=== PATIENT | female | born 1965 | race Hispanic/Latino ===

== ENCOUNTER → 2017-05-27 | Outpatient (CLI) | payer BC ==
--- NOTE | 2017-05-27 13:59 | Diagnostic Imaging Report ---
PROCEDURE:TRANSVAGINAL ULTRASOUND COMPARISON:None. INDICATIONS:Left Pelvic Pain TECHNIQUE: Grayscale transverse and sagittal transabdominal and transvaginal images were obtained of the pelvis. Transvaginal imaging was medically necessary to better evaluate the endometrium. Exam limited due to patient's body habitus.. FINDINGS: UTERUS: 11.0 x 5.3 x 6.4 cm no focal lesions. Normal echogenicity. Multiple nabothian cysts are noted in the cervix. ENDOMETRIUM: 1.0 cm. Normal. Homogeneous echotexture, without focal thickening. RIGHT OVARY: 3.6 x 2.1 x 2.6 cm.. No focal lesions. LEFT OVARY: 4.1 x 2.7 x 3.5 cm. 2.4 x 2.2 x 2.3 cm cystic, anechoic lesion in the left ovary, without septations or nodularity, likely representing a simple follicular cyst or dominant follicle. There is no free fluid within the pelvis. No adnexal masses. CONCLUSION: 1. Essentially unremarkable pelvic ultrasound. 2. 2.4 cm left ovarian simple follicular cyst versus dominant follicle. No further followup is indicated. Karri Jj M.D. Dictated by: Karri Jj M.D. on 05/27/2017 at 14:07 Electronically approved by: Karri Jj M.D. on 05/27/2017 at 14:07
--- NOTE | 2017-05-27 13:59 | Diagnostic Imaging Report ---
PROCEDURE:US PELVIS COMPLETE NON OB COMPARISON:None. INDICATIONS:Left Pelvic Pain CONCLUSION: Please refer to transvaginal ultrasound performed at the same date and time for full dictated report. Karri Jj M.D. Dictated by: Karri Jj M.D. on 05/27/2017 at 14:07 Electronically approved by: Karri Jj M.D. on 05/27/2017 at 14:07
--- NOTE | 2017-05-27 16:06 | Diagnostic Imaging Report ---
#[id number] - MGSCRBIL #BILATERAL DIGITAL SCREENING MAMMOGRAM WITH CAD: 05/27/2017 CLINICAL: Routine screening. Comparison is made to exams dated: 01/14/2015 mammogram and 10/15/2013 mammogram - [facility]. Current study contains 4 films. There are scattered fibroglandular elements in both breasts. Current study was also evaluated with a Computer Aided Detection (CAD) system. There are benign lymph nodes in both breasts. There also are benign calcifications in the right breast. No significant masses, calcifications, or other findings are seen in either breast. There has been no significant interval change. IMPRESSION: BENIGN There is no mammographic evidence of malignancy. A 1 year screening mammogram is recommended. The patient will be notified by letter of the results. Soham ford/ulisses:05/27/2017 11:03:46 Body Straightener: Angelia WEN)(Bill), [facility] letter sent: Compared to Prior B9 Mammogram BI-RADS: 2 Benign
== END ==
LOC: US 08:25
PROVIDERS: ATTEND Obstetrics & Gynecology
DX: Z12.31 Encounter for screening mammogram for malignant neoplasm of breast (principal); R10.2 Pelvic and perineal pain
CPT/HCPCS: 76830; 76856; G0202

== ENCOUNTER → 2019-06-29 | Outpatient (CLI) | payer BC ==
[~2019-06-29] MED LIST: DIATRIZOATE MEGL/DIATRIZOA SOD 30 ML BTL PO ONE; IOPAMIDOL 370 MG/ML 200 ML INFUS..BTL INJ ONE; SODIUM CHLORIDE 0.9% 50ML 50 ML ONE
--- NOTE | 2019-06-29 09:39 | Diagnostic Imaging Report ---
CT of the abdomen and pelvis, with contrast, 06/29/2019. History: Left-sided abdominal pain. Comparison: None available. Technique: Multidetector CT scanning of the abdomen and pelvis was performed from the level of the lung bases to the inferior pubic rami after intravenous and oral administration of contrast. Coronal and sagittal multiplanar reformations were obtained. RADIATION DOSE: Total DLP: 691 mGy*cm Dose modulation, iterative reconstruction, and/or weight based adjustment of the mA/kV was utilized to reduce the radiation dose to as low as reasonably achievable. Discussion: LUNG BASES: No visualized abnormalities. ABDOMEN: There is diffusely low-density of the liver. The biliary tree, spleen, pancreas, adrenal glands, and kidneys are normal. The hepatic vein, portal vein, and splenic vein are patent. The abdominal aorta is within normal limits for size. The stomach and small bowel are unremarkable. The appendix is visualized and is normal. Multiple colonic diverticuli are present without evidence of adjacent inflammation There is no evidence of adenopathy or free fluid. A fat-containing left periumbilical ventral hernia is present with a 2 cm neck. PELVIS: The bladder, uterus, and adnexa are normal in appearance. Bilateral tubal ligation clips are present. There is no evidence of free fluid or adenopathy. BONES AND SOFT TISSUES: No acute abnormality. IMPRESSION: 1. Diffuse fatty infiltration of the liver. 2. Colonic diverticulosis without evidence of diverticulitis. 3. Fat-containing left periumbilical hernia. 4. Status post cholecystectomy. Signed by: Joaquin Chávez on 06/29/2019 9:37 AM
== END ==
LOC: CT 07:40
PROVIDERS: ATTEND Family Medicine
DX: R10.9 Unspecified abdominal pain (principal); K76.0 Fatty (change of) liver, not elsewhere classified; K57.90 Diverticulosis of intestine, part unspecified, without perforation or abscess without bleeding; K42.9 Umbilical hernia without obstruction or gangrene
CPT/HCPCS: 74177; Q9967

== ENCOUNTER → 2025-02-16 | Day surgery (SDC) | payer BC ==
[~2025-02-16] MED LIST changes: +ATORVASTATIN CA10 MG PO; -DIATRIZOATE MEGL/DIATRIZOA SOD 30 ML BTL PO ONE; +FENTANYL CITRATE/PF 100MCG/2 ML INJ ONE; +HYOSCYAMINE SULFATE 0.5 MG/ML INJ ONE; -IOPAMIDOL 370 MG/ML 200 ML INFUS..BTL INJ ONE; +KETAMINE 50MG/5ML SYR ONE; +LIDOCAINE HCL 2% LOCAL INJ 5 ML SDV VIAL INJ ONE; +METFORMIN HCL500 MG PO; +ONDANSETRON HCL INJ 2MG/ML 2ML 2 MG/ML VIAL ONE; +PROPOFOL IV EMULSION 50 ML IV ONE; -SODIUM CHLORIDE 0.9% 50ML 50 ML ONE
[2025-02-16 13:32] VITALS: BP 138/91; PULSE 79; RESP 18; TEMP 98.2; O2SAT 99
== END | disposition home or self-care (01) ==
LOC: OR 09:16
PROVIDERS: ATTEND Internal Medicine Gastroenterology
DX: Z12.11 Encounter for screening for malignant neoplasm of colon (principal); K57.30 Diverticulosis of large intestine without perforation or abscess without bleeding; K64.8 Other hemorrhoids; E11.9 Type 2 diabetes mellitus without complications; K76.0 Fatty (change of) liver, not elsewhere classified; I10 Essential (primary) hypertension; E66.812 Obesity, class 2; Z68.36 Body mass index [BMI] 36.0-36.9, adult; Z79.84 Long term (current) use of oral hypoglycemic drugs; Z79.899 Other long term (current) drug therapy; Z01.810 Encounter for preprocedural cardiovascular examination
CPT/HCPCS: 36415; 45380; 45385; 82948; 93005; J1980; J2003; J2405; J2704; J3010; 45378